=== PATIENT | female | born 1975 | race Caucasian/White ===

== ENCOUNTER 2017-02-19 20:22 | Emergency (ER) | payer OTHER ==
[2017-02-19] MEDS ORDERED: NITROFURANTOIN MACRO 100 MG CAPSULE PO STA (21:07)
[2017-02-19] MEDS ORDERED: PHENAZOPYRIDINE 100 MG TABLET PO STA (21:07)
[2017-02-19] MEDS ORDERED: NITROFURANTOIN MACRO 100 MG CAPSULE PO ONE (21:10)
[2017-02-19] MEDS ORDERED: PHENAZOPYRIDINE 100 MG TABLET PO ONE (21:10)
== END 2017-02-19 21:14 | disposition home or self-care (01) ==
DX: N39.0 Urinary tract infection, site not specified (principal); Z87.891 Personal history of nicotine dependence
CPT/HCPCS: 81001; 99283; A9270

== ENCOUNTER 2018-01-28 06:10 | Emergency (ER) | payer OTHER ==
[2018-01-28] MEDS ORDERED: LIDOCAINE PATCH 5% TOP STA (06:33)
[2018-01-28] MEDS ORDERED: KETOROLAC 60 MG/2 ML VIAL IM STA (06:33)
[2018-01-28] MEDS ORDERED: CYCLOBENZAPRINE 10 MG Prepack 2 PO PRN (06:33)
[2018-01-28] MEDS ORDERED: DEXAMETHASONE 10 MG/ML VIAL PO STA (06:33)
--- NOTE | 2018-01-28 06:36 | ED Physician Documentation ---
PD HPI BACK PAIN - Stated complaint Stated Complaint: BACK PX - History obtained from History obtained from: Patient - History of Present Illness Timing - onset: Yesterday Timing - details: Gradual onset, Still present Location: Upper, Left Quality: Pain, Spasm Associated symptoms: No: Fever, Weakness, Numbness Worsened by: Movement, Palpation Similar symptoms before: No diagnosis Recently seen: Not recently seen - Additional information Additional information: patient is a 42 year old female with a history of lower back pain who is presenting to the emergency department for upper back pain. patient states that she woke up with a knot in her left upper back. it is better when she stands up and worse when she lies on it. patient denies any trauma, fever, chills or rash. 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 - Present Medications Home Medications: Ambulatory Orders Medication Instructions Recorded Confirmed Cyclobenzaprine [Flexeril] 10 mg PO TID PRN #10 tablet 01/28/18 Lidocaine Patch 5% [Lidoderm Patch] 1 each TOP DAILY #14 patch 01/28/18 - Allergies Allergies/Adverse Reactions: Allergies Allergy/AdvReac Type Severity Reaction Status Date / Time Latex, Natural Rubber Allergy Rash Verified 02/19/17 20:29 - Social History Does the pt smoke?: Yes Smoking Status: Former smoker Does the pt drink ETOH?: No Does the pt have substance abuse?: No - POLST Patient has POLST: No PD ED PE NORMAL - Vitals Vital signs reviewed: Yes - General General: Alert and oriented X 3, No acute distress - HEENT HEENT: Atraumatic, PERRL - Neck Neck: Supple, no meningeal sign - Cardiac Cardiac: RRR - Respiratory Respiratory: No respiratory distress - Abdomen Abdomen: Soft - Derm Derm: Normal color, Warm and dry, No rash - Extremities Extremities: No deformity, No edema - Neuro Neuro: Alert and oriented X 3, No motor deficit, Normal speech Eye Opening: Spontaneous Motor: Obeys Commands Verbal: Oriented GCS Score: 15 PD ED PE EXPANDED - Back Back: Soft tissue tenderness (tenderness and hypertonicty of left thoracic paraspinal muscles) Results - Vitals Vitals: Oxygen O2 Source Room air PD MEDICAL DECISION MAKING - ED course Complexity details: reviewed old records, reviewed results, re-evaluated patient , considered differential, d/w patient ED course: Patient was seen and examined at bedside. Patient's symptoms were muscular in nature. Patient was treated with toradol, decadron and lidoderm patch. patient was given a take home pack for flexeril. patient required no further work up at this time and was stable for discharge with outpatient follow up. Departure - Departure Disposition: 01 Home, Self Care Clinical Impression: Upper back strain Condition: Good Instructions: ED Spasm Back No Trauma Follow-Up: primary,care provider [Other] - Within 3 Days Prescriptions: Cyclobenzaprine [Flexeril] 10 mg PO TID PRN #10 tablet PRN Reason: Spasms Lidocaine Patch 5% [Lidoderm Patch] 1 each TOP DAILY #14 patch Comments: Your symptoms are likely secondary to muscle strain in your back. You should try ice, heat, ibuprofen and tylenol for pain. You can try the flexeril for spasm, but you cannot drive while taking it or operate heavy machinery. You should follow up with your doctor if your symptoms persist. you may return to the emergency department at any time for new, worsening or uncontrollable symptoms. Forms: Activity restrictions
[2018-01-28] MEDS ORDERED: CHERRY SYRUP 10 ML UDC PO ONE (06:51)
[2018-01-28 06:52] VITALS: BP 122/63
== END 2018-01-28 06:52 | disposition home or self-care (01) ==
LOC: ED 06:10
DX: S29.012A Strain of muscle and tendon of back wall of thorax, initial encounter (principal); X58.XXXA Exposure to other specified factors, initial encounter; Z87.891 Personal history of nicotine dependence
CPT/HCPCS: 96372; 99283; A9270

== ENCOUNTER 2021-06-12 17:19 | Emergency (ER) | payer OTHER ==
--- NOTE | 2021-06-12 18:26 | ED Physician Documentation ---
History of Present Illness - Stated complaint Stated Complaint: HEAD INJURY - Chief complaint Chief Complaint: Trauma Hd/Nk - Additonal information Additional information: 46-year-old female presents emergency department for evaluation of mild headache and dizziness. She was at work this afternoon when an 8 foot A-frame ladder fell striking the top of her head. She did not lose consciousness and she is not anticoagulated. At the time of the event she had sudden severe pain in her head that has dissipated. She rested for a few minutes got up and began to work again but then felt somewhat dizzy and lightheaded therefore she stopped. She rested again for a few minutes before resuming work and again felt lightheaded therefore she presents to the emergency department. She has no history of previous head injury or concussions. She is not vomiting. She describes her headache as mild right now. Review of Systems Constitutional: denies: Fever, Chills Eyes: denies: Loss of vision, Decreased vision, Photophobia Ears: denies: Loss of hearing, Tinnitus/ringing Nose: reports: Reviewed and negative Throat: reports: Reviewed and negative Cardiac: reports: Reviewed and negative Respiratory: reports: Reviewed and negative GI: reports: Nausea. denies: Abdominal Pain, Vomiting, Constipation : reports: Reviewed and negative Skin: reports: Reviewed and negative Musculoskeletal: denies: Neck pain, Back pain Neurologic: reports: Headache, Head injury. 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 - Present Medications Home Medications: Ambulatory Orders Medication Instructions Recorded Confirmed No Known Home Medications 06/12/21 06/12/21 - Allergies Allergies/Adverse Reactions: Allergies Allergy/AdvReac Type Severity Reaction Status Date / Time Latex, Natural Rubber Allergy Rash Verified 06/12/21 17:26 - Social History Does the pt smoke?: No Smoking Status: Never smoker Does the pt drink ETOH?: Yes Does the pt have substance abuse?: No - Immunizations Immunizations are current?: Yes - POLST Patient has POLST: No PD ED PE NORMAL - General General: Alert and oriented X 3, No acute distress - HEENT HEENT: Atraumatic, PERRL, Ears normal, Moist mucous membranes, Pharynx benign, Other (No contusion or abrasion seen on occiput. Negative raccoon's and negative prajapati sign) - Neck Neck: Supple, no meningeal sign - Cardiac Cardiac: RRR, No murmur - Respiratory Respiratory: Clear bilaterally - Abdomen Abdomen: Normal bowel sounds, Soft, Non tender, Non distended Results - Vitals Vitals: Vital Signs - 24 hr 06/12/21 17:26 Temperature 36.7 C Heart Rate 68 Respiratory 18 Rate Blood Pressure 157/100 H O2 Saturation 98 Oxygen O2 Source Room air PD MEDICAL DECISION MAKING - ED course Complexity details: re-evaluated patient, d/w patient ED course: 46-year-old female presents emergency department for evaluation of headache and dizziness after being struck in the head by a ladder that fell at work. On exam she has no focal neuro deficits. Normal cerebellar exam. This is a lower risk mechanism for severe head injury/bruising bleeding. I do suspect however that she has a concussion. We did discuss the risks and benefits of CT imaging and at this time we shared decision making patient has elected to defer CT imaging. She will be discharged home recommendation for plenty of rest ibuprofen or Tylenol for discomfort. Emergent return precautions were discussed for worsening symptoms/headache.. [employer] [id number] completed Departure - Departure Disposition: 01 Home, Self Care Clinical Impression: Concussion Qualifiers: Encounter type: initial encounter Loss of consciousness presence/duration: without LOC Qualified Code(s): S06.0X0A - Concussion without loss of consciousness, initial encounter Blunt head trauma Qualifiers: Encounter type: initial encounter Qualified Code(s): S09.8XXA - Other specified injuries of head, initial encounter Condition: Stable Record reviewed to determine appropriate education?: Yes Instructions: ED Head Injury Closed Ch Comments: Dannielle you were seen in the ER today for blunt head trauma after the ladder fell on your head. As we discussed this is a lower risk mechanism for serious injury to your head which could include bruising or bleeding in the brain. However your symptoms are very consistent with a concussion. In order for concussions to heal the brain needs rest. I recommend that you avoid alcohol caffeine and nicotine. Please attempt to get 8 to 10 hours of sleep at night that is uninterrupted. Please limit your screen time on the computer or cell phone or tablets to less than 2 hours a day. You can take Tylenol or ibuprofen for generalized headache. If at any point you feel that your symptoms are worsening, you develop a suddenly severe headache, have uncontrolled vomiting, have changes in your vision or feel that your symptoms are worsening please return to the emergency department. At that time we would proceed with a CAT scan of your head.
[2021-06-12 18:33] VITALS: BP 132/84
== END 2021-06-12 18:36 | disposition home or self-care (01) ==
LOC: ED 17:19
DX: S06.0X0A Concussion without loss of consciousness, initial encounter (principal); W20.8XXA Other cause of strike by thrown, projected or falling object, initial encounter; Y99.0 Civilian activity done for income or pay
CPT/HCPCS: 1040M; 99281; 99282

== ENCOUNTER 2021-09-18 16:14 | Emergency (ER) | payer OTHER ==
[2021-09-18] MEDS ORDERED: HYDROmorphone 1 MG/ML CARPUJECT IM STA (16:37)
--- NOTE | 2021-09-18 16:38 | ED Physician Documentation ---
History of Present Illness - Stated complaint Stated Complaint: BACK PX - Chief complaint Chief Complaint: Back Pain - Additonal information Additional information: 46-year-old female presents emergency department for evaluation of thoracic back pain. She reports that she woke up with it yesterday morning. She has had this many times in the past and she attributes it to sleeping. She states that she is usually able to work and move which alleviate the back pain but no relief today. She did take 1000 mg of ibuprofen prior to arrival. Patient reports that the pain is worse when she takes a deep breath. No unilateral leg swelling. No hormone use. No recent surgery. No falls or trauma. No cough or fever. No congestion. Though the pain is thoracic this is the typical location of her back pain. Non-smoker. 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 - Present Medications Home Medications: Ambulatory Orders Medication Instructions Recorded Confirmed Cyclobenzaprine [Flexeril] 10 mg PO TID PRN #20 tablet 09/18/21 - Allergies Allergies/Adverse Reactions: Allergies Allergy/AdvReac Type Severity Reaction Status Date / Time Latex, Natural Rubber Allergy Rash Verified 09/18/21 16:25 - Social History Does the pt smoke?: No Smoking Status: Never smoker Does the pt drink ETOH?: Yes Does the pt have substance abuse?: No - Immunizations Immunizations are current?: Yes - POLST Patient has POLST: No PD ED PE EXPANDED - General General: Alert, No acute distress, Other (Obese) - Neck Neck: Supple w/out meningeal sx. No: Adenopathy - Cardiac Cardiac: Regular Rate, Radial strong equal. No: Murmur Present - Respiratory Respiratory: Clear to ausultation giovanny. No: Distress, Labored - Abdomen Abdomen: Normal Bowel sounds. No: Tender to palpation - Back Back: Normal exam, Soft tissue tenderness (Mild tenderness with forward flexion of the thoracic and lumbar spine.). No: Vertebral tenderness - Extremities Extremities: Normal. No: Deformity, Tenderness, Pedal edema bilateral, Right calf TTP/cord, Left calf TTP/cord - Neuro Neuro: Alert and Oriented X 3, CNII-XII intact Results - Vitals Vitals: Vital Signs - 24 hr 09/18/21 16:20 Temperature 36.6 C Heart Rate 58 L Respiratory 16 Rate Blood Pressure 142/73 H O2 Saturation 98 Oxygen O2 Source Room air - Rads (name of study) CXR Radiology: Final report received ( no acute cardiopulmonary pathology) PD MEDICAL DECISION MAKING - ED course Complexity details: reviewed results, re-evaluated patient, d/w patient ED course: 46-year-old female presents emergency department for evaluation of acute thoracic back pain that she is had multiple times in the past. Pain typically resolves with movement and activity but did not over the last 24 hours that she presents here. On exam there is no focal midline tenderness and she had full range of motion of the thoracic and lumbar spine. However she was unable to take a deep breath due to the pain. She is PERC negative. Screening chest x-ray did not show findings of a pneumonia. Thoracic spine was also grossly normal. Patient was given a one-time dose of Dilaudid here in the ER with nearly full resolution of symptoms. She has benefited from Flexeril in the past and that prescription will be levied today. Emergent return precautions were discussed. Departure - Departure Disposition: 01 Home, Self Care Clinical Impression: Thoracic back pain Qualifiers: Chronicity: acute Back pain laterality: bilateral Qualified Code(s): M54.6 - Pain in thoracic spine Condition: Stable Record reviewed to determine appropriate education?: Yes Instructions: ED Spasm Back No Trauma Prescriptions: Cyclobenzaprine [Flexeril] 10 mg PO TID PRN #20 tablet PRN Reason: Spasms Comments: Dannielle you were seen today for thoracic back pain that you have had multiple times in the past. The x-ray of your chest and bones did not show any worrisome findings. You were given a one-time dose of Dilaudid here in the ER with good relief of your pain. I do recommend that you do gentle stretching activities as well stay as active as possible. I have sent a prescription for Flexeril to [facility] in [place]. Please be careful driving when taking the Flexeril as it can be somewhat sedating. I do recommend that you take 500 mg of Tylenol or 600 mg of ibuprofen for any discomfort. If your symptoms are worsening, you develop chest pain or cannot breathe adequately then please return immediately to the ER for a second evaluation.
--- NOTE | 2021-09-18 16:58 | XRAY Report ---
PROCEDURE: Chest 2 View X-Ray INDICATIONS: cough TECHNIQUE: 2 view(s) of the chest. COMPARISON: None. FINDINGS: Surgical changes and devices: None. Lungs and pleura: No pleural effusions or pneumothorax. Lungs are clear. Mediastinum: Mediastinal contours are normal. Heart size is normal. Bones and chest wall: No suspicious bony abnormalities. Soft tissues appear unremarkable. IMPRESSION: No acute cardiopulmonary disease process. Reviewed by: Florence Johnson MD, PhD on 09/18/2021 4:57 PM PDT Approved by: Florence Johnson MD, PhD on 09/18/2021 4:57 PM PDT Station ID: [id number]
[2021-09-18 17:18] VITALS: BP 135/91
== END 2021-09-18 17:17 | disposition home or self-care (01) ==
LOC: ED 16:14
DX: M54.6 Pain in thoracic spine (principal)
CPT/HCPCS: 71046; 96374; 99283; 99284; J1170

== ENCOUNTER 2022-09-18 08:00 | Outpatient (CLI) | payer OTHER | END 2022-09-18 23:59 | disposition home or self-care (01) | LOC: LAB.N 08:00 | PROVIDERS: ATTEND Emergency Medicine | DX: R30.0 Dysuria (principal) | CPT/HCPCS: 87086 ==